=== PATIENT | female | born 1990 | race Caucasian/White ===

== ENCOUNTER 2018-08-21 21:29 | Inpatient (IN) ==
[2018-08-21] MEDS ORDERED: ONDANSETRON 4 MG/2 ML VIAL IV STA (23:29)
[2018-08-21] MEDS ORDERED: HYDROmorphone 2 MG/1 ML VIAL IV STA (23:29)
[2018-08-21] MEDS ORDERED: diphenhydrAMINE 50 MG/1 ML VIAL IV STA (23:32)
[2018-08-22] MEDS ORDERED: HYDROmorphone 2 MG/1 ML VIAL IV PRN (00:27)
[2018-08-22] MEDS ORDERED: PROMETHAZINE 25 MG/1 ML VIAL IM PRN (02:07)
[2018-08-22] MEDS: SODIUM CHLORIDE 0.9% 1,000 ML IV SCH ×2 (03:00→16:59)
[2018-08-22] MEDS: metroNIDAZOLE INJ 500 MG in PREMIX 1 EACH IV SCH ×4 (03:00→22:43)
[2018-08-22] MEDS: LEVOFLOXACIN INJ 500 MG in PREMIX 1 EACH IV SCH (04:10)
[2018-08-22] MEDS: diphenhydrAMINE 50 MG/1 ML VIAL IV SCH ×3 (05:28→18:11)
[2018-08-22 07:17] LABS: Basophils % 0.4 % (0.0-0.8); Eosinophils % 0.1 % (0.00-10.9); Hematocrit 41.1 VOL% (35.7-47.0); Hemoglobin 13.7 GM/DL (12.0-16.0); Immature Granulocytes % 0.4 %; Immature Granulocytes Absolute 0.03 #; Lymphocytes # 1.6 10*3/uL (1.4-4.0); Lymphocytes % 20.1 % (21.3-54.2); Mean Corpuscular HGB Conc 33.3 GM/DL (32-36); Mean Corpuscular Hemoglobin 32 PG (27-34); Mean Corpuscular Volume 95.8 FL (87-102); Mean Platelet Volume 9.6 FL (9.6-12.0); Monocytes # 0.6 10*3/uL (0.11-0.8); Monocytes % 7.8 % (1.7-12.7); Neutrophils # 5.8 10*3/uL (1.4-7.4); Neutrophils % 71.2 % (38.7-73.9); Platelet Count 244 T/CUMM (130-400); Red Blood Count 4.29 MC/CUMM (3.8-5.5); Red Cell Distribution Width 11.9 % (9.3-17.3); White Blood Count 8.1 T/CUMM (4-12)
[2018-08-22 07:38] LABS: Albumin 3.3 G/DL (3.4-5.0); Calcium 8.9 MG/DL (8.5-10.1); Osmolality,Calculated 279.3 MOS/KG (273-304); Potassium 4.3 MMOL/L (3.5-5.1); Total Protein 7.4 G/DL (6.4-8.3)
[2018-08-22] MEDS ORDERED: LACTATED RINGERS 500 ML IV ONE (10:16)
[2018-08-22] MEDS ORDERED: INDOMETHACIN SUPP 50 MG SUPP RECTAL ONE (10:18)
[2018-08-22] MEDS ORDERED: LIDOCAINE 100 MG/5 ML SYRINGE ONE (11:02)
[2018-08-22] MEDS ORDERED: PROPOFOL 200 MG/20 ML VIAL IV ONE (11:02)
[2018-08-22] MEDS ORDERED: NEOSTIGMINE 10 MG/10 ML VIAL ONE ×2 (11:02→12:19)
[2018-08-22] MEDS ORDERED: GLYCOPYRROLATE 0.4 MG/2 ML VIAL ONE (11:02)
[2018-08-22] MEDS ORDERED: ONDANSETRON 4 MG/2 ML VIAL ONE (11:02)
[2018-08-22] MEDS ORDERED: ROCURONIUM 100 MG/10 ML VIAL IV ONE (11:02)
[2018-08-22] MEDS ORDERED: SUCCINYLCHOLINE 200 MG/10 ML VIAL ONE (11:02)
[2018-08-22] MEDS ORDERED: fentaNYL 100 MCG/2 ML VIAL ONE (12:18)
[2018-08-22] MEDS ORDERED: MIDAZOLAM 2 MG/2 ML VIAL ONE (12:18)
[2018-08-22] MEDS ORDERED: SEVOFLURANE 1 UNIT/15 MINUTE INH ONE (12:19)
[2018-08-23] MEDS: LEVOFLOXACIN INJ 500 MG in PREMIX 1 EACH IV SCH (00:34)
[2018-08-23] MEDS: diphenhydrAMINE 50 MG/1 ML VIAL IV SCH ×4 (00:34→18:17)
[2018-08-23] MEDS: metroNIDAZOLE INJ 500 MG in PREMIX 1 EACH IV SCH ×2 (04:33→13:27)
[2018-08-23] MEDS: ONDANSETRON 4 MG/2 ML VIAL IV PRN ×2 (05:55→09:46)
[2018-08-23] MEDS ORDERED: cefOXitin 2,000 MG in SYRINGE 1 EACH IV ONE (07:00)
[2018-08-23 10:11] LABS: Albumin 3.2 G/DL (3.4-5.0); Bilirubin,Direct 0.93 MG/DL (0.0-0.20); Bilirubin,Indirect 0.6 MG/DL (0.0-1.0); Bilirubin,Total 1.5 MG/DL (0.2-1.0); Total Protein 7.4 G/DL (6.4-8.3)
[2018-08-23] MEDS ORDERED: LIDOCAINE 1%/EPI INJ 20 ML VIAL ONE (10:18)
[2018-08-23] MEDS ORDERED: TISSUE ADHESIVE 1 EACH APPLICATOR TOP ONE (10:19)
[2018-08-23] MEDS ORDERED: SEVOFLURANE 1 UNIT/15 MINUTE INH ONE (12:29)
[2018-08-23] MEDS ORDERED: PROPOFOL 200 MG/20 ML VIAL IV ONE (12:29)
[2018-08-23] MEDS ORDERED: ONDANSETRON 4 MG/2 ML VIAL ONE ×2 (12:30→12:33)
[2018-08-23] MEDS ORDERED: ONDANSETRON 4 MG/2 ML VIAL IV PRN (12:30)
[2018-08-23] MEDS ORDERED: KETOROLAC 30 MG/1 ML VIAL ONE (12:30)
[2018-08-23] MEDS ORDERED: GLYCOPYRROLATE 0.4 MG/2 ML VIAL ONE ×2 (12:30→12:31)
[2018-08-23] MEDS ORDERED: MIDAZOLAM 2 MG/2 ML VIAL ONE (12:30)
[2018-08-23] MEDS ORDERED: fentaNYL 100 MCG/2 ML VIAL ONE (12:30)
[2018-08-23] MEDS ORDERED: SUCCINYLCHOLINE 200 MG/10 ML VIAL ONE (12:31)
[2018-08-23] MEDS ORDERED: NEOSTIGMINE 10 MG/10 ML VIAL ONE (12:31)
[2018-08-23] MEDS ORDERED: ROCURONIUM 100 MG/10 ML VIAL IV ONE (12:31)
[2018-08-23] MEDS ORDERED: HYDROmorphone 2 MG/1 ML VIAL ONE (12:32)
[2018-08-23] MEDS ORDERED: PROMETHAZINE 25 MG/1 ML VIAL ONE (12:34)
[2018-08-23] MEDS ORDERED: PROMETHAZINE INJ 12.5 MG in SODIUM CHLORIDE 0.9% 50 ML IV ONE (12:35)
[2018-08-23] MEDS ORDERED: HYDROmorphone 2 MG/1 ML VIAL IV PRN (12:36)
[2018-08-23] MEDS: SODIUM CHLORIDE 0.9% 1,000 ML IV SCH (14:23)
[2018-08-24] MEDS: diphenhydrAMINE 50 MG/1 ML VIAL IV SCH ×2 (01:58→07:03)
[2018-08-24 04:00] LABS: Basophils % 0.4 % (0.0-0.8); Eosinophils % 0.4 % (0.00-10.9); Hematocrit 36.7 VOL% (35.7-47.0); Hemoglobin 12.3 GM/DL (12.0-16.0); Immature Granulocytes % 0.4 %; Immature Granulocytes Absolute 0.03 #; Lymphocytes # 2.3 10*3/uL (1.4-4.0); Lymphocytes % 27.3 % (21.3-54.2); Mean Corpuscular HGB Conc 33.5 GM/DL (32-36); Mean Corpuscular Hemoglobin 32 PG (27-34); Mean Corpuscular Volume 96.1 FL (87-102); Mean Platelet Volume 9.6 FL (9.6-12.0); Monocytes # 0.5 10*3/uL (0.11-0.8); Monocytes % 5.9 % (1.7-12.7); Neutrophils # 5.5 10*3/uL (1.4-7.4); Neutrophils % 65.6 % (38.7-73.9); Platelet Count 226 T/CUMM (130-400); Red Blood Count 3.82 MC/CUMM (3.8-5.5); Red Cell Distribution Width 11.9 % (9.3-17.3); White Blood Count 8.4 T/CUMM (4-12)
[2018-08-24 04:29] LABS: Albumin 2.7 G/DL (3.4-5.0); Bilirubin,Total 1.1 MG/DL (0.2-1.0); Calcium 7.9 MG/DL (8.5-10.1); Osmolality,Calculated 280.1 MOS/KG (273-304); Potassium 3.7 MMOL/L (3.5-5.1); Total Protein 6.4 G/DL (6.4-8.3)
[2018-08-24] MEDS: SODIUM CHLORIDE 0.9% 1,000 ML IV SCH (06:05)
[2018-08-24 12:00] VITALS: BP 124/78
== END 2018-08-24 11:45 | disposition home or self-care (01) | DRG 263 ==
LOC: EDBD → EDUNIT# → N.ED 21:29 → N.EDINP 08-22 00:10 → SUATTDRO 08-22 00:10 → N.3E 08-22 00:54
PROVIDERS: ADMIT Internal Medicine Infectious Disease; ATTEND Family Medicine
PROC: ERCPWSP (ICD-10-PCS; 2018-08-22 10:50)
PROC: LAPCHOL (2018-08-23 10:40)